=== PATIENT | female | born 1995 | race Caucasian/White ===

== ENCOUNTER 2021-03-27 15:35 | Outpatient (REF) | payer OTHER, SELFPAY ==
--- NOTE | ~2021-03-27 | MR_ITS ---
EXAMINATION: MR ANKLE WITHOUT CONTRAST, LEFT CLINICAL INFORMATION: Lateral left ankle pain. COMPARISON: None TECHNIQUE: Multisequence MR imaging of the left ankle was obtained without contrast on a high-field strength scanner. FINDINGS: BONE AND ARTICULAR CARTILAGE: Prominent marrow edema throughout the posterior tibialis as well as the superior aspect of the calcaneus adjacent to the posterior subtalar joint. Moderate joint effusion with synovitis. Findings could represent an infectious or inflammatory arthropathy. Alternatively, findings could be related to stress reactions or osseous contusions. Patchy increased T2 signal within the midfoot tarsal bones, which may be related to poor fat saturation versus mild osseous contusions or stress reactions. No talar osteochondral lesion. ACHILLES TENDON: Normal. OTHER TENDONS: Fluid and heterogeneous signal throughout the posterior tibialis tendon sheath, consistent with prominent tenosynovitis. No measurable tendon defect. LIGAMENTS: Intact. JOINT FLUID AND SOFT TISSUES: Small tibiotalar joint effusion. Moderate posterior subtalar joint effusion with synovitis as discussed above. PLANTAR FASCIA: Normal. SINUS TARSI AND TARSAL TUNNEL: Normal. MR/MR ankle LT wo con IMPRESSION: 1. Prominent marrow edema within the talus and calcaneus adjacent to the posterior subtalar joint. Moderate joint effusion with synovitis. Findings could indicate an infectious or inflammatory arthropathy. Alternatively, findings could represent prominent stress reactions versus osseous contusions. No associated fracture line. 2. Patchy abnormal T2 signal within the tarsal bones, which may be related to poor fat saturation or indicate stress reactions versus osseous contusions. 3. Prominent posterior tibialis tenosynovitis without a measurable tendon defect. 4. Small tibiotalar joint effusion.
== END 2021-03-27 15:36 | disposition home or self-care (01) ==
LOC: HO.MRI 15:35
PROVIDERS: PCP Nurse Practitioner Family; Visit Provider Nurse Practitioner Family
DX: M25.572 Pain in left ankle and joints of left foot (principal); G89.29 Other chronic pain
CPT/HCPCS: 73721

== ENCOUNTER 2021-04-29 08:18 | Outpatient (REF) | payer OTHER, SELFPAY ==
--- NOTE | ~2021-04-29 | XR_ITS ---
EXAMINATION: XR ANKLE, LEFT CLINICAL INFORMATION: Pain COMPARISON: Previous MRI March 2021 TECHNIQUE: AP, lateral, and mortise views of the left ankle. FINDINGS: Bone alignment is normal. No fracture or dislocation is seen. The ankle mortise is normal. Soft tissues are normal. XR/XR ankle LT min 3V IMPRESSION: Normal left ankle.
== END 2021-04-29 08:19 | disposition home or self-care (01) ==
LOC: HO.HOSX 08:18
PROVIDERS: Visit Provider Physician Assistant
DX: M25.572 Pain in left ankle and joints of left foot (principal); G89.29 Other chronic pain
CPT/HCPCS: 73610; 99202

== ENCOUNTER 2021-07-02 06:42 | Outpatient (REF) | payer OTHER, SELFPAY ==
[2021-07-02 12:01] LABS: Alanine Aminotransferase 30 U/L (0-31); Alkaline Phosphatase 134 U/L (39-117); Anion Gap 12 (12-20); Aspartate Amino Transferase 21 U/L (5-31); Bilirubin Total 0.4 mg/dL (0.0-1.0); Blood Urea Nitrogen 8 mg/dL (9-16); Calcium 9.4 mg/dL (8.4-10.2); Carbon Dioxide 24 mmol/L (22-29); Chloride 107 mmol/L (96-108); Cholesterol 83 mg/dL; Estimated Glomerular Filt Rate > 60; Glucose Fasting 93 mg/dL (60-99); HDL Cholesterol 35 mg/dL; LDL Cholesterol Calculated 39 mg/dl; Potassium 4.3 mmol/L (3.3-5.1); Sodium 139 mmol/L (135-145); Total Protein 8.4 g/dL (6.5-8.0); Triglycerides 48 mg/dL
[2021-07-02 12:22] LABS: TSH reflex Free T4 4.34 uIU/mL (0.32-4.0)
[2021-07-02 13:04] LABS: Free T4 (Free Thyroxine) 1.21 ng/dL (0.71-1.85)
== END 2021-07-02 06:43 | disposition home or self-care (01) ==
LOC: HO.HMGCLDS 06:42
PROVIDERS: Visit Provider Nurse Practitioner Family
DX: Z00.00 Encounter for general adult medical examination without abnormal findings (principal)
CPT/HCPCS: 36415; 80053; 80061; 84439; 84443

== ENCOUNTER 2021-07-03 | Outpatient (REF) | payer OTHER, SELFPAY ==
[2021-07-03 11:34] LABS: Appearance Urine CLEAR; Color Urine YELLOW; Glucose Urine UA NEG (NEG); Leukocyte Esterase Urine TRACE (NEG); Nitrite Urine NEG (NEG); PH 5.5 (5.0-8.0); UACC Culture Trigger YES; Urine Blood NEG (NEG); Urine Ketones NEG (NEG); Urine Protein NEG (NEG-TRACE)
[2021-07-03 11:54] LABS: RBC Urine 0-2 /HPF (0); Squamous Epithelial Cell Urine 2+ /LPF
[2021-07-03 11:55] LABS: Mucus Urine TRACE /LPF
== END 2021-07-03 00:01 | disposition home or self-care (01) ==
LOC: HO.LNP
PROVIDERS: Visit Provider Nurse Practitioner Family
DX: Z00.00 Encounter for general adult medical examination without abnormal findings (principal)
CPT/HCPCS: 81001; 87086

== ENCOUNTER 2022-05-26 13:42 | Outpatient (REF) | payer OTHER, SELFPAY ==
--- NOTE | ~2022-05-26 | XR_ITS ---
EXAMINATION: XR KNEE, RIGHT CLINICAL INFORMATION: Pain COMPARISON: None TECHNIQUE: Four views of the right knee. FINDINGS: Bone alignment is normal. No fracture or dislocation. Normal joint spaces. Moderate joint effusion. XR/XR knee RT 4V IMPRESSION: Joint effusion.
== END 2022-05-26 13:43 | disposition home or self-care (01) ==
LOC: HO.HMGCX 13:42
PROVIDERS: PCP Nurse Practitioner Family; Visit Provider Physician Assistant
DX: M25.561 Pain in right knee (principal)
CPT/HCPCS: 73564

== ENCOUNTER 2022-08-11 10:40 | Outpatient (REF) | payer OTHER, SELFPAY ==
--- NOTE | ~2022-08-11 | XR_ITS ---
EXAMINATION: XR KNEE AP STANDING CLINICAL INFORMATION: Pain COMPARISON: Previous right knee x-ray May 2022 TECHNIQUE: AP bilateral standing view of the knees and sunrise view of the right knee was obtained. FINDINGS: Right knee: There may be mild valgus angulation. Bone alignment is otherwise normal. No fracture or dislocation. Joint spaces are normal. Soft tissues are normal Standing AP view of the left knee is unremarkable. XR/XR knee standing BI IMPRESSION: Question mild right knee valgus angulation otherwise unremarkable exam.
--- NOTE | ~2022-08-11 | XR_ITS ---
EXAMINATION: XR KNEE AP STANDING CLINICAL INFORMATION: Pain COMPARISON: Previous right knee x-ray May 2022 TECHNIQUE: AP bilateral standing view of the knees and sunrise view of the right knee was obtained. FINDINGS: Right knee: There may be mild valgus angulation. Bone alignment is otherwise normal. No fracture or dislocation. Joint spaces are normal. Soft tissues are normal Standing AP view of the left knee is unremarkable. XR/XR knee RT 1V IMPRESSION: Question mild right knee valgus angulation otherwise unremarkable exam.
== END 2022-08-11 10:41 | disposition home or self-care (01) ==
LOC: HO.HOSX 10:40
PROVIDERS: Visit Provider Physician Assistant
DX: M25.461 Effusion, right knee (principal)
CPT/HCPCS: 73560; 73565; 99212

== ENCOUNTER 2022-09-19 08:04 | Outpatient (REF) | payer OTHER, SELFPAY ==
--- NOTE | ~2022-09-19 | MR_ITS ---
EXAMINATION: MR KNEE WITHOUT CONTRAST, RIGHT CLINICAL INFORMATION: Effusion. COMPARISON: None available. TECHNIQUE: MRI of the knee without contrast was performed using routine sequences on a high-field scanner. FINDINGS: MENISCI: Medial Meniscus: Complex tear of the posterior horn. There is undersurface and free edge tearing. There are areas of superior surface tearing as well. Complex tear of the body with predominant undersurface and free edge tearing. Lateral Meniscus: Tear of the inner one-third of the body. Tear of the free edge and undersurface of the lateral aspect of the posterior horn. LIGAMENTS: Cruciate: Intact Collateral: Intact EXTENSOR MECHANISM: Intact ARTICULAR CARTILAGE/BONE: Patellofemoral Compartment: Mild lateral patellar subluxation. No significant cartilage loss. Medial Compartment: Patchy edema in the posterior medial tibial plateau, mild cartilage thinning. Medial femoral condyle underlying the tibial spines. Lateral Compartment: Moderate edema in the lateral aspect lateral femoral condyle. Patchy edema in the lateral tibial plateau. Mild cartilage thinning in the lateral aspect of the compartment. JOINT FLUID AND BURSAE: Moderate effusion. Low signal foci and effusion, which could represent synovitis, debris/loose bodies. MR/MR knee RT wo con IMPRESSION: 1. Complex tear of the medial meniscal posterior horn and body. 2. Tear of the lateral meniscal body and posterior horn, as above. 3. Mild medial and lateral compartment arthritis. 4. Edema in the lateral aspect lateral femoral condyle. This could represent bone bruise. 5. Proximal tibial edema, differential considerations include bone bruise, sequela of degeneration.
== END 2022-09-19 08:05 | disposition home or self-care (01) ==
LOC: HO.MRI 08:04
PROVIDERS: PCP Nurse Practitioner Family; Visit Provider Physician Assistant
DX: M25.461 Effusion, right knee (principal)
CPT/HCPCS: 73721

== ENCOUNTER → 2022-09-25 09:17 | Outpatient (BNVA) | payer OTHER, SELFPAY | PROVIDERS: PCP Nurse Practitioner Family; Visit Provider Physician Assistant | DX: M25.461 Effusion, right knee (principal); S83.231A Complex tear of medial meniscus, current injury, right knee, initial encounter; X58.XXXA Exposure to other specified factors, initial encounter; Y93.9 Activity, unspecified; Y92.9 Unspecified place or not applicable; Y99.8 Other external cause status | CPT/HCPCS: 20610; 99212; J1040 ==

== ENCOUNTER 2022-10-14 09:53 | Outpatient (AMB) | payer OTHER, SELFPAY ==
--- NOTE | 2022-10-14 10:27 | A.OFFPC_ITS ---
Vital Signs 10/14/22 10:28 Height 5 ft 5 in Weight 138 lb 4 oz BMI 23.0 BP 110/76 Blood Pressure Location Rt brachial Position Sitting Pulse 97 Pulse Source Pulse Oximeter Pulse Oximetry (%) 99 Oxygen Delivery Method Room Air Intake Visit Reasons: 3m follow up on TSH Allergies No Known Allergies Allergy (Verified 10/14/22 10:30) Medication List - Last Reconciled 10/14/22 by Son Quintero, [employer] OPERATOR-BC diphenhydramine-acetaminophen 25-500 mg (Tylenol PM Extra Strength) 2 tabs PO BEDTIME PRN naproxen sodium (Aleve) 220 mg PO BID PRN Tobacco use date assessed: 10/14/22 Dental Screening Dental Screen Date: 10/14/22 Did you have a dental visit in the last 12 months?: Yes Did you have a dental problem in the last 6 months where you did not have access to dental care?: No Was dental information given to patient?: Patient has dentist HPI 3m follow up on TSH HPI Details elevated TSH, will repeat. Will also check alk phos. Pt denies any fatigue, hair loss, constipation. 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 Rory Sabillon, Zaida Doherty, Edwin Massey and colleagues, with an educational nadiya from [employer]. Review of Systems Const Reports as per HPI Physical exam (Primary Care) Vital Signs: Last Vital Signs Pulse 97 10/14/22 10:28 BP 110/76 10/14/22 10:28 Pulse Ox 99 10/14/22 10:28 Oxygen Delivery Method Room Air 10/14/22 10:28 BMI result Body Mass Index 23.0 Tobacco/Smoking Status: Tobacco use Status Tobacco use date assessed 10/14/22 10/14/22 10:33 Patient Tobacco Use Status Never used Tobacco 10/14/22 10:33 e-Cigarette/Vaping Use Never Used 10/14/22 10:33 Thrive Assessment: Date of Thrive Assessment Date Thrive assessed 07/08/22 10/14/22 10:33 Const General: cooperative Orientation/consciousness: patient oriented x3 Resp Effort & Inspection: normal respiratory effort Auscultation: clear to auscultation bilaterally Cardio Rate: regular rate Rhythm: regular rhythm Heart sounds: S1 normal heart sound present and S2 normal heart sound present Neuro General: patient oriented x3 Psych Appearance: grossly normal Mental Status: mental status grossly normal Speech and movement: Normal speech and movement present Affect: normal affect Attitude: cooperative Thought process: Normal thought process present Thought content: Normal thought content present Insight: Good insight present (Psych) Judgement: Good judgement present (Psych) Assessment and Plan Assessment & Plan (1) Elevated TSH: Code(s): R79.89 - Other specified abnormal findings of blood chemistry Plan: Labs ordered (2) Elevated alkaline phosphatase level: Code(s): R74.8 - Abnormal levels of other serum enzymes Plan The patient agreed to the use of a medical office coordinator for this encounter. Scribed for SHRUTHI Bui- by Michaela Lynne medical office coordinator, on 10/14/2022 at 10:35 EST. Orders: Orders Lipid Panel Today R7.89 - Other specified abnormal findings of blood chemistry TSH reflex Free T4 Today R79.89 - Other specified abnormal findings of blood chemistry Complete Blood Count Auto Diff Today R7.89 - Other specified abnormal findings of blood chemistry UA CC w/rflx Micro + Cult Today R7.89 - Other specified abnormal findings of blood chemistry Thyroid Peroxidase Antibodies Today R7.89 - Other specified abnormal findings of blood chemistry Comprehensive Met. Panel Today R74.8 - Abnormal levels of other serum enzymes, R7. - Other specified abnormal findings of blood chemistry Coding Level of Care Code Est Pt Level 3 (89232) Diagnoses Elevated TSH R7. Elevated alkaline phosphatase level R74.8
[2022-10-14 10:28] VITALS: BP 110/76; PULSE 97; O2SAT 99; BMI 23.0
== END 2022-10-14 11:00 | disposition home or self-care (01) ==
PROVIDERS: PCP Nurse Practitioner Family; Visit Provider Nurse Practitioner Family
DX: R79.89 Other specified abnormal findings of blood chemistry (principal); R74.8 Abnormal levels of other serum enzymes
CPT/HCPCS: 99213

== ENCOUNTER 2022-11-03 11:00 | Outpatient (RCR) | payer OTHER, SELFPAY ==
--- NOTE | 2022-10-03 14:50 | MHC.PT.EP ---
[facility] [place] Office [place] Office [place] Office [address] Tia Soares [address] [phone] F: [phone] F: [phone] F: [phone] F: [phone] Physical Therapy Plan of Care Date of Evaluation: Date of Surgery: N/A Diagnosis: S83.206A unspecified tear of unspecified meniscus, current injury, right knee, initial encounter Assessment: pt is a 27 y/o female presenting to physical therapy w/ referring diagnosis of S83.206A unspecified tear of unspecified meniscus, current injury, right knee, initial encounter. Impairments include pain, decreased range of motion, decreased strength, impaired functional mobility, impaired postural awareness, and altered ambulation mechanics. pt is a good candidate for skilled PT due to age, potential remediation of impairments, typical disease/condition progression and prognosis, comorbidities, and motivation. pt would benefit from skilled PT intervention to provide a tailored strengthening and stretching exercise program, functional training, gait training, postural re-training, neuromuscular re-education, modalities as needed for pain, equipment safety demonstration. Frequency and Duration: The patient will be seen 2x/wk for 4 wks Short Term Goals: pt will be I w/ HEP to promote self-management of condition. pt will improve R knee extension strength to at least 5/5 to promote ease in prolonged ambulation. Group Home Goals: pt will demo 0 degrees active knee extension to remediate gait impairments on even ground. 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 Treatment Plan: Modalities to reduce pain, spasms and effusion. Manual therapy to restore motion and function. Therapeutic exercise to improve strength and flexibility. Neuromuscular re-education for posture and balance. Therapeutic activities to return to functional activities of daily living. Electronically signed by: Missy Gonzáles PT, DPT Please sign and return to therapist. Thank you for your referral.
--- NOTE | 2022-11-03 11:48 | MHC.PT.DC ---
[facility] [place] Office [place] Office [place] Office [address] Tia Soares [address] [phone] F: [phone] F: [phone] F: [phone] F: [phone] Physical Therapy Discharge Report Diagnosis: S83.206A unspecified tear of unspecified meniscus, current injury, right knee, initial encounter Date of Surgery: N/A Date of Evaluation: 10/03/22 Date of Discharge: 11/03/22 Treatments to Date: 9 Cancellations to Date: 0 No Shows to Date: 0 Discharge Status: Improved Function Independent with HEP Discharge Summary: The patient has been consistently reporting little to no knee pain over the past several visits. She is independent with her home exercise program. She was given the opportunity to ask questions and they were answered to the best of my ability. She is discharged to her home exercise program at this time. Electronically signed by: Missy Gonzáles PT, DPT Please sign and return to therapist. Thank you for your referral.
== END 2022-11-03 11:48 | disposition home or self-care (01) ==
LOC: HO.PT 11:00
PROVIDERS: PCP Nurse Practitioner Family; Visit Provider Physician Assistant
DX: S83.206D Unspecified tear of unspecified meniscus, current injury, right knee, subsequent encounter (principal)
CPT/HCPCS: 97110; 97162; 97530

== ENCOUNTER 2023-04-22 08:29 | Outpatient (AMB) | payer OTHER, SELFPAY ==
--- NOTE | 2023-04-22 09:01 | A.OFFPC_ITS ---
Vital Signs 04/22/23 09:05 04/22/23 09:34 Height 5 ft 5 in Weight 147 lb BMI 24.5 BP 108/68 Blood Pressure Location Rt brachial Position Sitting Pulse 108 H 95 Pulse Source Pulse Oximeter Pulse Oximetry (%) 97 Oxygen Delivery Method Room Air Intake Visit Reasons: PE Intake Note: Patient here for physical exam. no new issues or concerns. Allergies No Known Allergies Allergy (Verified 04/22/23 09:06) Tobacco use date assessed: 04/22/23 Dental Screening Dental Screen Date: 04/22/23 Did you have a dental visit in the last 12 months?: Yes Did you have a dental problem in the last 6 months where you did not have access to dental care?: No Was dental information given to patient?: Patient has dentist HPI PE HPI Details Pt is here for a PE. Will order labs. Does not have a cfo controller, will refer. 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 1. Little interest or pleasure in doing things: not at all 2. Feeling down, depressed, or hopeless: not at all 3. Trouble falling or staying asleep, or sleeping too much: not at all 4. Feeling tired or having little energy: not at all 5. Poor appetite or overeating: not at all 6. Feeling bad about yourself - or that you are a failure or have let yourself or your family down: not at all 7. Trouble concentrating on things, such as reading the newspaper or watching television: not at all 8. Moving or speaking so slowly that other people could have noticed. Or the opposite - being so fidgety or restless that you have been moving around a lot more than usual: not at all 9. Thoughts that you would be better off or of hurting yourself in some way: not at all Total score: 0 Depression Screening Interpretation: Negative Depression Screening Done: Yes 06695 - PHQ-9 Billing: Yes Source: Developed by Drs. Rory Sabillon, Zaida Doherty, Edwin Massey and colleagues, with an educational nadiya from [employer]. Thrive Questionnaire Date Thrive assessed: 04/22/23 I am a: Patient What is your living situation today?: I have a steady place to live Within the past 12 months, did the food you bought not last and you didn't have the money to get more?: Never true Within the past 12 months, did you worry whether your food would run out before you got money to buy more?: Never true Do you have trouble paying for medicines?: No Do you have trouble getting transportation to medical appointments?: No Do you have trouble paying your heating and electricity bill?: No Do you have trouble taking care of your child, family member or friend?: No Do you have trouble with day-to-day activities such as bathing, preparing meals, shopping, managing finances, etc.?: No Are you currently unemployed and looking for a job?: No Are you interested in more education?: No Currently or been in a relationship where the following occur: no concerns reported AUDIT C Alcohol Use Questionnaire (AUDIT-C) 1. How often do you have a drink containing alcohol?: Never 3. How often do you have six or more drinks on one occasion?: Never Total Score: 0 DAVY-7 AMB Questionnaire DAVY-7 Date DAVY - 7 assessed: 04/22/23 Feeling nervous, anxious, or on edge: 0 = Not at all Not being able to stop or control worryin = Not at all Worrying too much about different things: 0 = Not at all Trouble relaxin = Not at all Being so restless that it is hard to sit still: 0 = Not at all Becoming easily annoyed or irritable: 0 = Not at all Feeling afraid as if something awful might happen: 0 = Not at all Total DAVY-7 score (0-4 normal; 5-9 mild; 10-14 moderate; 15-21 severe): 0 Source: Developed by Zaida Norris Kurt Kroenke and colleagues, with an educational nadiya from [employer]. DAVY-7 Assessment Billing DAVY-7 Assessment Tool: DAVY-7 Assessment 16508 Review of Systems Const Denies chills and Denies fever(s) Eyes Denies blurry vision ENT Denies vertigo, Denies dizziness and Denies sore throat Card Denies chest pain at rest, Denies chest pain with activity, Denies diaphoresis, Denies dyspnea and Denies dyspnea on exertion Resp Denies cough, Denies dyspnea, Denies dyspnea on exertion and Denies wheezing GI Denies abdominal pain, Denies melena, Denies hematochezia, Denies constipation, Denies diarrhea and Denies loose stools Denies hematuria Musc Denies numbness and Denies tingling Skin/Breast Denies lesions Neuro Denies vertigo, Denies dizziness, Denies numbness and Denies tingling Psych Denies anxiety, Denies depression, Denies homicidal ideation, Denies suicidal ideation and Denies other (substance abuse) Aller/Immun Denies wheezing Physical exam (Primary Care) Vital Signs: Last Vital Signs Pulse 108 H 04/22/23 09:05 BP 108/68 04/22/23 09:05 Pulse Ox 97 04/22/23 09:05 Oxygen Delivery Method Room Air 04/22/23 09:05 BMI result Body Mass Index 24.5 Tobacco/Smoking Status: Tobacco use Status Tobacco use date assessed 04/22/23 04/22/23 09:08 Patient Tobacco Use Status Never used Tobacco 04/22/23 09:03 e-Cigarette/Vaping Use Never Used 04/22/23 09:03 Depression Screening Interpretation: Negative Thrive Assessment: Date of Thrive Assessment Date Thrive assessed 07/08/22 04/22/23 09:03 Currently or been in a relationship where the following occur: no concerns reported Const General: cooperative Nutritional Appearance: well nourished Orientation/consciousness: patient oriented x3 HENMT Head: Yes normal to inspection, Yes normocephalic and Yes atraumatic Ears: TM's normal bilaterally Eyes General: appearance normal, both eyes and all related structures Alignment and Position: alignment normal and position normal Neck Neck: Yes normal visual inspection and Yes no lymphadenopathy Thyroid: Thyroid normal Resp Effort & Inspection: normal respiratory effort Auscultation: clear to auscultation bilaterally Cardio Rate: regular rate Rhythm: regular rhythm Heart sounds: S1 normal heart sound present, S2 normal heart sound present and no murmurs GI Palpation (GI): Soft to palpation and nontender Auscultation: normal bowel sounds Skin Rashes: no rashes Neuro General: patient oriented x3, moves all extremities, no focal motor deficits and deep tendon reflexes 2+ bilaterally Romberg Test: Negative Psych Appearance: grossly normal Mental Status: mental status grossly normal Speech and movement: Normal speech and movement present Affect: normal affect Attitude: cooperative Thought process: Normal thought process present Thought content: Normal thought content present Insight: Good insight present (Psych) Judgement: Good judgement present (Psych) Assessment and Plan Assessment & Plan (1) Screening for cervical cancer: Code(s): Z12.4 - Encounter for screening for malignant neoplasm of cervix Plan: Referred to cfo controller (2) Physical exam: Code(s): Z00.00 - Encounter for general adult medical examination without abnormal findings Plan: encouraged pt to get labs drawn in the near future Plan The patient agreed to the use of a director global medical affairs for this encounter. Scribed for SHRUTHI Bui-BC by Michaela Lynne director global medical affairs, on 04/22/2023 at 09:15 EST. Orders: Referrals STUDENT ACTIVITIES DIRECTOR Referral Z12.4 - Encounter for screening for malignant neoplasm of cervix Coding Level of Care Code Est Pt Prev Care 18-39y(98806) Diagnoses Screening for cervical cancer Z12.4 Physical exam Z00.00 Additional Codes DAVY-7 Assessment Billing - DAVY-7 Assessment Tool: DAVY-7 Assessment [id number] ([id number])
[2023-04-22 09:05] VITALS: BP 108/68; PULSE 108; O2SAT 97; BMI 24.5
[2023-04-22 09:34] VITALS: PULSE 95
== END 2023-04-22 09:25 | disposition home or self-care (01) ==
PROVIDERS: PCP Nurse Practitioner Family; Visit Provider Nurse Practitioner Family
DX: Z12.4 Encounter for screening for malignant neoplasm of cervix (principal); Z00.00 Encounter for general adult medical examination without abnormal findings
CPT/HCPCS: 99395

== ENCOUNTER 2023-06-05 08:40 | Outpatient (AMB) | payer OTHER, SELFPAY ==
--- NOTE | 2023-06-05 08:42 | A.OFFVIS_ITS ---
Intake Intake Visit Reasons: Newprob-Right ankle/foot pain swelling Intake Note: Missy is a 27 year old female who presents today for a evaluation for right ankle pain/swelling. No hx of injury. Patient reports being seen at the walk in center on 05/26/22. She states her pain has been off and on for many months. Pain is worse when applying a lot of pressure on the right side of her foot/ankle. Hx of using a topical cream with mild relief. Allergies No Known Allergies Allergy (Verified 06/05/23 08:49) HPI Newprob-Right ankle/foot pain swelling HPI Details 28-year-old female who presents in the [facility] today for an evaluation of right ankle/foot pain with edema. I last saw the patient in the office on 09/25/2022 with a complaint of right knee pain. During this encounter the patient reported pain in the right ankle that radiated up to the right knee. She received a cortisone injection in the right knee and she was referred to physical therapy. While in the office today the patient does not recall any known injury. She confirms being seen at the [facility] for right knee and ankle pain on 0 05/26/2022 and states her pain has been intermittent for several months. She reports an increase in pain when applying pressure on the right side of the foot/ankle. Patient has a history of topical cream use with mild pain relief. 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 Current occupational exposures/hazards: No Cognitive needs: No Hearing needs: No Vision needs: No Review of Systems Const All systems reviewed & are unremarkable except as noted in HPI and below Physical Exam Const General: cooperative, healthy appearing and no acute distress Resp Effort & Inspection: normal respiratory effort and able to speak in complete sentences Cardio Rate: regular rate Peripheral pulses: Peripheral pulses 2+ throughout GI Palpation (GI): Soft to palpation Skin Lesions: no lesions Rashes: no rashes Extrem Other: right foot and ankle normal to inspection no ecchymosis, erythema or edema. able to dorsiflex and plantarflex with no limitations. Difficulty with supination. No difficulty o limitation with pronation. Tenderness to palpation along the EHL and pain with resisted big toe extension. Sensation intact. Pedal pulse intact. Assessment & Plan Assessment & Plan (1) Extensor tendonitis of foot: Code(s): M77.8 - Other enthesopathies, not elsewhere classified Plan Ms. Degroot is a 28-year-old female who presents in the office today for an evaluation of right ankle/foot pain with edema. I last saw the patient in the office on 09/25/2022 with a complaint of right knee pain. During this encounter the patient reported pain in the right ankle that radiated up to the right knee. She received a cortisone injection in the right knee and she was referred to physical therapy. While in the office today the patient does not recall any known injury. She confirms being seen at the Walk-In clinic for right knee and ankle pain on 05/26/2022 and states her pain has been intermittent for several months. She reports an increase in pain when applying pressure on the right side of the foot/ankle. Patient has a history of topical cream use with mild pain relief. The patient will be referred to physical therapy to work on modalities for EHL tendonitis. Follow up will be PRN, or sooner if needed. X-rays of the right foot/ankle which were obtained while in the office today and were reviewed by me, Dixie Hoang PA-C, revealed no acute fracture or dislocaiton. Orders: Orders XR foot RT min 3V Today M79.673 - Pain in unspecified foot XR ankle RT min 3V Today M25.579 - Pain in unspecified ankle and joints of unspecified foot PT Evaluation and Treatment Today M77.8 - Other enthesopathies, not elsewhere classified Patient Instructions: Scribed by Charlette Prather medical laboratory technical officer, for Dixie Hoang PA-C on 06/05/2023 at 8:59 am, EST. Coding Level of Care Code Est Pt Level 4 (93208) Diagnoses Extensor tendonitis of foot M77.8
== END 2023-06-05 09:07 | disposition home or self-care (01) ==
PROVIDERS: PCP Nurse Practitioner Family; Visit Provider Physician Assistant
DX: M77.8 Other enthesopathies, not elsewhere classified (principal)
CPT/HCPCS: 99213

== ENCOUNTER 2023-06-05 08:40 | Outpatient (REF) | payer OTHER, SELFPAY ==
--- NOTE | ~2023-06-05 | XR_ITS ---
EXAMINATION: XR FOOT, RIGHT CLINICAL INFORMATION: Pain in unspecified foot COMPARISON: Same day right ankle TECHNIQUE: AP, lateral, and oblique views of the right foot. FINDINGS: The bones are intact.. No fracture. There is mild soft tissue overlap of the second and great toe and the fourth and fifth toe. There is slight lateral subluxation of the proximal phalanx of the great toe with respect to the head of the first metatarsal. Joint spaces are maintained. XR/XR foot RT min 3V IMPRESSION: Slight lateral subluxation of the proximal phalanx of the great toe with respect to the head of the first metatarsal. No acute bony abnormality.
--- NOTE | ~2023-06-05 | XR_ITS ---
EXAMINATION: XR ANKLE, RIGHT CLINICAL INFORMATION: Pain in unspecified ankle and joints of unspecified foot COMPARISON: Same-day right foot TECHNIQUE: AP and mortise views of the right ankle. FINDINGS: No fracture. Alignment is anatomic. No erosions. Joint spaces are maintained. Soft tissues are normal. XR/XR ankle RT min 3V IMPRESSION: No bony abnormality.
== END 2023-06-05 08:41 | disposition home or self-care (01) ==
LOC: HO.HOSX 08:40
PROVIDERS: PCP Nurse Practitioner Family; Visit Provider Physician Assistant
DX: M77.8 Other enthesopathies, not elsewhere classified (principal); M25.571 Pain in right ankle and joints of right foot
CPT/HCPCS: 73610; 73630; 99212

== ENCOUNTER 2023-07-21 13:05 | Outpatient (REF) | payer OTHER, SELFPAY ==
[2023-07-22 05:10] LABS: CT PCR NOT DETECTED (Not Detect.); NG PCR NOT DETECTED (Not Detect.)
[2023-07-22 13:56] LABS: BV Int Neg Control Negative (Negative); BV Int Pos Control Positive (Positive)
== END 2023-07-21 13:06 | disposition home or self-care (01) ==
LOC: HO.LAB 13:05
PROVIDERS: PCP Nurse Practitioner Family; Visit Provider Advanced Practice Midwife
DX: Z01.419 Encounter for gynecological examination (general) (routine) without abnormal findings (principal); Z20.2 Contact with and (suspected) exposure to infections with a predominantly sexual mode of transmission; Z11.3 Encounter for screening for infections with a predominantly sexual mode of transmission
CPT/HCPCS: 0353U; 87480; 87510; 87660; 88142; 99385

== ENCOUNTER 2023-07-21 13:05 | Outpatient (AMB) | payer OTHER, SELFPAY ==
[2023-07-21 13:17] VITALS: BP 110/62; BMI 24.3
--- NOTE | 2023-07-21 13:17 | A.OFFVIS_ITS ---
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 She thinks she has had 1 once before but does not remember where when perhaps it was in [place]. She says she has not sexually active and she does not need anything for control she says her periods very regular when they come about once a month her last period was in the middle of June. She says she lives with her parents and she does not work she walks around for exercise she thinks she eats fairly healthy. She has no particular problems with vaginal discharge or anything like that. 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 Current occupational exposures/hazards: No Cognitive needs: No Hearing needs: No Vision needs: No Female Reproductive History Menstrual Age of Menarche: 13 Duration of menses: 3-5 days Date of last menstrual period: 06/20/23 control method: none History of abnormal pap smear: No (unknown( patient don't remember)) Physical Exam Vital Signs: Last Vital Signs BP 110/62 07/21/23 13:17 BMI result Body Mass Index 24.3 Const General: healthy appearing, comfortable, no acute distress, well developed and alert Nutritional Appearance: average body habitus Orientation/consciousness: patient oriented x3 Limitations: no limitations HEENT Head: Yes normocephalic Neck Neck: Yes normal visual inspection Chest Chest palpation & inspection: normal inspection of the chest Breast/axilla inspection: normal inspection of the breasts and normal inspection of the axillae Breast/axilla palpation: normal palpation of the breasts and normal palpation of the axillae Resp Effort & Inspection: normal respiratory effort GI Inspection: Yes normal to inspection, No Abdominal wall edema and No distended Palpation (GI): Soft to palpation and nontender Other: Normal external exam vagina is pink and moist cervix is extremely deep and posterior in patient's pelvis nulliparous extremely difficult to see secondary to deep placement Pap smear taken but I suspect it may be inadequate because only the anterior portion of the cervix could be adequately sampled though multiple efforts were made to have sampling touch the entire cervix. Abundant clear slippery mucus that could possibly be consistent with midcycle mucus was noted this was inconsistent with patient's history which was scant. Uterus is small midposition mobile nontender very good muscle tone. General: Yes bladder normal to palpation External Female Exam: normal external appearance and normal appearance of the urethra Speculum Exam - Vagina: normal appearance of the vagina, normal palpation and normal vaginal discharge Speculum Exam - Cervix: normal appearance of the cervix, normal palpation and nontender Bimanual exam- vagina & uterus: normal bimanual exam, normal palpation, uterine size normal, bladder normal to palpation, consistency normal, normal palpation, uterine mobility normal, uterine shape normal, No Cervical tenderness present, non-tender and no cervical motion tenderness Bimanual Exam- Adnexa, other: normal adnexae, no masses, normal and No adnexal tenderness Neuro General: patient oriented x3 Assessment & Plan Assessment & Plan (1) Screening for cervical cancer: Comment: Nulliparous cervix extremely posterior patient's pelvis difficult to obtain good visualization Pap smear taken but suspect it may not be adequate. Additionally abundant clear mucus consistent with midcycle though this was inconsistent with the patient history. Code(s): Z12.4 - Encounter for screening for malignant neoplasm of cervix (2) Well woman exam with routine gynecological exam: Code(s): Z01.419 - Encounter for gynecological examination (general) (routine) without abnormal findings Plan -----Discussed in this visit the following: healthy balanced diet, regular and consistent exercise, getting recommended health screens, doing the best she can for her particular health concerns, kegel exercises, pap smear screening and followup recommendations, mammography screening and SBE, normal changes in cycles in her life stage--- . Patient did find placement of the speculum very uncomfortable multiple attempts to get good visualization of the cervix were done however limited visualization was obtained though cervix and mucosa appeared extremely healthy I suspect the Pap smear may in fact be inadequate a additionally there was abundant clear mucus consistent with midcycle though the patient's history was not consistent with this (she said her last menstrual period was the middle of June it is now the middle of July). I explained to the patient that I was sorry that she found it uncomfortable and best attempts were made to get a good Pap but it if it was not able to be obtained there is a chance it might need to be repeated. Coding Level of Care Code New Pt Prev Care 18-39yr(04950 Diagnoses Screening for cervical cancer Z12.4 Well woman exam with routine gynecological exam Z01.419
== END 2023-07-21 14:00 | disposition home or self-care (01) ==
PROVIDERS: PCP Nurse Practitioner Family; Visit Provider Advanced Practice Midwife
DX: Z12.4 Encounter for screening for malignant neoplasm of cervix (principal); Z01.419 Encounter for gynecological examination (general) (routine) without abnormal findings
CPT/HCPCS: 99385

== ENCOUNTER 2023-08-12 08:00 | Outpatient (RCR) | payer OTHER, SELFPAY ==
--- NOTE | 2023-06-29 09:01 | MHC.PT.EP ---
[facility] [place] Office [place] Office [place] Office [address] Soares [address] [phone] F: [phone] F: [phone] F: [phone] F: [phone] Physical Therapy Plan of Care Date of Evaluation: 06/29/23 Date of Surgery: none Diagnosis: extensor tendonitis of right foot Assessment: Patient is a 28 year old R handed female who presents with s/s consistent with ankle pain, EHL tendonitis. She does not work and is fairly sedentary for her age. Patient past medical history includes autism. Current impairments include pain, posture, gait mechanics, ROM, strength, activity tolerance and functional mobility. Functional limitations include decreased ability to stand, walk, negotiate stairs, be out in community, exercise and be active. Patient is motivated with good rehab potential. Skilled PT will address impairments and functional limitations in order to achieve goals. Frequency and Duration: The patient will be seen 2x/week for 5 weeks Short Term Goals: I with HEP- 2 weeks Footwear modifcation - 3 weeks TTP absent - 3 weeks Roller Man Goals: Able to walk/stand unlimited 2/10 max pain - 5 weeks LEFS 72/80 - 5 weeks Strength 4+/5 grossly - 5 weeks Treatment Plan: Modalities to reduce pain, spasms and effusion. Manual therapy to restore motion and function. Therapeutic exercise to improve strength and flexibility. Neuromuscular re-education for posture and balance. Therapeutic activities to return to functional activities of daily living. Electronically signed by: Kris Jiang, PT Please sign and return to therapist. Thank you for your referral.
--- NOTE | 2024-01-07 07:14 | MHC.PT.DC ---
[facility] [place] Office [place] Office [place] Office [address] Tia Soares [address] [phone] F: [phone] F: [phone] F: [phone] F: [phone] Physical Therapy Discharge Report Diagnosis: extensor tendonitis of right foot Date of Surgery: none Date of Evaluation: 06/29/23 Date of Discharge: 09/09/23 Treatments to Date: 13 Cancellations to Date: No Shows to Date: Discharge Status: Independent with HEP Discharge Summary: 08/12/23: I with HEP. LEFS 68/80. Able to walk/stand 2/10 max pain for a few weeks now. She has updated bands and HEP and is appropriate to d/c to HEP at this time. She will call back if exacerbation occurs. 08/10/23: pt on pace to d/c to HEP NV. strength 4+/5, unlimited ability to walk and stand. I with HEP. footwear modified. TTP min. 08/05/23: pt with less pain overall. improved balance and strength. we will continue 1 more week then d/c to HEP. 08/03/23: pt with steady progression and reduced s/s over the course of PT. we have been able to increased weight bearing/ CKC ex. we will begin process to transition to d/c to HEP in 1-2 weeks depending on best indications. 07/29/23: pt with min s/s. progressed strength. no adverse reactions. continue to progress as tolerated. 07/27/23: pt progressing well with skilled PT. some pain over the weekend so we held progression but will resume NV. 07/24/23: pt continues to progress well with skilled PT. responding well to current program. less s/s overall and only in ant ankle. 07/22/23: pt with min s/s. improving strength. full AROM. continue to progress as tolerated. responding better to balance intervention. 07/15/23: pt has been feeling better overall. however, today we were unable to progress due to pt feeling progressively more sick over the course of treatment. we were able to complete her full program but without progression today. we will resume progression NV. 07/13/23: pt progressing well with skilled PT. no adverse reactions from program. progressing with less s/s, reduced TTP, improved strength. 07/08/23: pt progressing well with skilled PT. no adverse reactions. continue to progress as tolerated. s/s reducing and strength/balance improving with less discomfort. 07/06/23: improving symptomatically. no adverse reactions from above. continue to progress as tolerated. 07/01/23: good response to tape. trialed US today. assess response and progress LE strength as tolerated. weak intrinsics. Patient is a 28 year old R handed female who presents with s/s consistent with ankle pain, EHL tendonitis. She does not work and is fairly sedentary for her age. Patient past medical history includes autism. Current impairments include pain, posture, gait mechanics, ROM, strength, activity tolerance and functional mobility. Functional limitations include decreased ability to stand, walk, negotiate stairs, be out in community, exercise and be active. Patient is motivated with good rehab potential. Skilled PT will address impairments and functional limitations in order to achieve goals. Electronically signed by: Kris Jiang, PT Please sign and return to therapist. Thank you for your referral.
== END 2024-01-07 07:15 | disposition home or self-care (01) ==
LOC: HO.PTCHIC 08:00
PROVIDERS: PCP Nurse Practitioner Family; Visit Provider Physician Assistant
DX: M77.8 Other enthesopathies, not elsewhere classified (principal)
CPT/HCPCS: 97035; 97110; 97112; 97161

== ENCOUNTER 2023-09-07 12:53 | Outpatient (AMB) | payer OTHER, SELFPAY ==
--- NOTE | 2023-09-07 13:04 | MHC.OFFVIS ---
Intake Visit Reasons: ov- follow up right ankle Intake Note: Missy is a 27 year old female who presents today for a follow up of her right ankle pain/swelling. No hx of injury. Patient reports being seen at the walk in center on 05/26/22. She states her pain has been off and on for many months. Pain is worse when applying a lot of pressure on the right side of her foot/ankle. Hx of using a topical cream with mild relief. She expresses that her pain has gotten a little better when she is doing her at home exercises. Allergies No Known Allergies Allergy (Verified 09/07/23 13:16) HPI HPI ov- follow up right ankle: Details: 28-year-old female who presents in the office today for a follow up of right knee. I last saw the patient in the office on 09/25/2022 when she received a cortisone injection in the right knee. While in the office today the patient reports having continued right knee pain and edema. She denies any new injury or trauma. Patient has a significant medical history of autism. 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 Current occupational exposures/hazards: No Cognitive needs: No Hearing needs: No Vision needs: No Female Reproductive History Menstrual Age of Menarche: 13 Review of Systems Const All systems reviewed & are unremarkable except as noted in HPI and below Physical Exam Const General: cooperative, healthy appearing and no acute distress Resp Effort & Inspection: normal respiratory effort and able to speak in complete sentences Cardio Rate: regular rate Peripheral pulses: Peripheral pulses 2+ throughout GI Palpation (GI): Soft to palpation Skin Lesions: no lesions Rashes: no rashes Extrem Other: Right knee: Moderate effusion. Tenderness to palpation along the medial joint line. Full ROM. NVI. Assessment & Plan Assessment & Plan (1) Effusion of right knee: Code(s): M25.461 - Effusion, right knee Category: Medical Plan Ms. Degroot is a 28-year-old female who presents in the office today for a follow up of right knee. I last saw the patient in the office on 09/25/2022 when she received a cortisone injection in the right knee. While in the office today the patient reports having continued right knee pain and edema. She denies any new injury or trauma. Patient has a significant medical history of autism. I discuss the role of cortisone injections, which was declined. I offered to aspirate the right knee, which the patient declined. I offered arthroscopic surgery for medial and lateral meniscectomy partial meniscectomy patient has declined at this time. The patient was offered a genumed knee brace, off the shelf, which she is willing to trial. Follow-up will be PRN, or sooner if needed. MRI of the right knee, obtained on 09/19/2022, revealed: 1. Complex tear of the medial meniscal posterior horn and body. 2. Tear of the lateral meniscal body and posterior horn, as above. 3. Mild medial and lateral compartment arthritis. 4. Edema in the lateral aspect lateral femoral condyle. This could represent bone bruise. 5. Proximal tibial edema, differential considerations include bone bruise, sequela of degeneration. Patient Instructions: Scribed by Charlette Prather medical reimbursement manager, for Dixie Hoang PA-C on 09/07/2023 at 12:56 pm, EST. Coding Level of Care Code Est Pt Level 3 (56891) Diagnoses Effusion of right knee M25.461
== END 2023-09-07 13:44 | disposition home or self-care (01) ==
PROVIDERS: PCP Nurse Practitioner Family; Visit Provider Physician Assistant
DX: M25.461 Effusion, right knee (principal); S83.231A Complex tear of medial meniscus, current injury, right knee, initial encounter; S83.281A Other tear of lateral meniscus, current injury, right knee, initial encounter
CPT/HCPCS: 99213

== ENCOUNTER → 2023-09-07 12:53 | Outpatient (BNVA) | payer OTHER, SELFPAY | PROVIDERS: PCP Nurse Practitioner Family; Visit Provider Physician Assistant | DX: M25.471 Effusion, right ankle (principal); S83.231A Complex tear of medial meniscus, current injury, right knee, initial encounter; S83.281A Other tear of lateral meniscus, current injury, right knee, initial encounter; X58.XXXA Exposure to other specified factors, initial encounter; Y93.9 Activity, unspecified; Y92.9 Unspecified place or not applicable; Y99.9 Unspecified external cause status | CPT/HCPCS: 99212 ==

== ENCOUNTER 2023-11-17 09:00 | Outpatient (AMB) | payer OTHER, SELFPAY ==
--- NOTE | 2023-11-17 09:05 | MHC.OFFVIS ---
Intake Visit Reasons: OV- RT knee pain Intake Note: Missy is a 28 year old female who presents today for a follow up of her right knee. Patient reports her knee is getting swollen and it hasn't gotten better. She mentions the knee brace, icing and taking NSAIDs for 3 + months gave her no to mild relief. Allergies No Known Allergies Allergy (Verified 11/17/23 09:10) HPI HPI OV- RT knee pain: Details: 31-year-old female who presents in the office today for a follow-up of right knee pain. I last saw the patient in the office on 09/07/23 when we discussed cortisone injections, right knee aspiration, or arthroscopic surgical interventions; all of which were declined. She was given a genumed knee brace to trial. ? ? While in the office today, the patient confirms right knee edema with no improvement. She claims to have used the knee brace, icing, and NSAIDs for more than three months with no relief. ? 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 Current occupational exposures/hazards: No Cognitive needs: No Hearing needs: No Vision needs: No Female Reproductive History Menstrual Age of Menarche: 13 Review of Systems Const All systems reviewed & are unremarkable except as noted in HPI and below Physical Exam Const General: cooperative, healthy appearing and no acute distress Resp Effort & Inspection: normal respiratory effort and able to speak in complete sentences Cardio Rate: regular rate Peripheral pulses: Peripheral pulses 2+ throughout GI Palpation (GI): Soft to palpation Skin Lesions: no lesions Rashes: no rashes Extrem Other: Right knee: Moderate effusion. Tenderness to palpation along the medial joint line. Full ROM. NVI. Assessment & Plan Assessment & Plan (1) Effusion of right knee: Code(s): M25.461 - Effusion, right knee Category: Medical Plan Ms. Degroot is a 31-year-old female who presents in the office today for a follow-up of right knee pain. I last saw the patient in the office on 09/07/23 when we discussed cortisone injections, right knee aspiration, or arthroscopic surgical interventions; all of which were declined. She was given a genumed knee brace to trial. ? ? While in the office today, the patient confirms right knee edema with no improvement. She claims to have used the knee brace, icing, and NSAIDs for more than three months with no relief.? ? Again, today we discussed the role of cortisone injections, aspirate the right knee, and arthroscopic surgery for medial and lateral meniscectomy partial meniscectomy. The patient again declined all of these options. From an orthopedic perspective there is nothing else to offer the patient at this time. I recommend for her to follow-up with either or all PCP, Rheumatology, or Pain Management. She was provided with my business card and will let me know how she would like to proceed. Otherwise, follow-up will be PRN, or sooner if needed. ? Patient Instructions: Scribed by Charlette Prather medical coding specialist, for Dixie Hoang PA-C on 11/17/2023 at 9:03 am, EST.? Coding Level of Care Code Est Pt Level 3 (42061) Diagnoses Effusion of right knee M25.461
== END 2023-11-17 09:49 | disposition home or self-care (01) ==
PROVIDERS: PCP Nurse Practitioner Family; Visit Provider Physician Assistant
DX: M25.461 Effusion, right knee (principal)
CPT/HCPCS: 99213

== ENCOUNTER → 2023-11-17 09:00 | Outpatient (BNVA) | payer OTHER, SELFPAY | PROVIDERS: PCP Nurse Practitioner Family; Visit Provider Physician Assistant | DX: M25.461 Effusion, right knee (principal) | CPT/HCPCS: 99212 ==

== ENCOUNTER 2024-03-25 14:17 | Outpatient (AMB) | payer OTHER, SELFPAY ==
[2024-03-25 14:36] VITALS: BP 108/71; PULSE 106; O2SAT 100; BMI 24.5
--- NOTE | 2024-03-25 14:36 | MHC.OFFVIS ---
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 They notes were reviewed prior to visit. Recent x-ray and MRI reviewed, results as per below Patient reports 3 years of right knee pain, denies inciting injury, fall, trauma Pain lateral and medial, tenderness to palpation, worse with walking, flexion and extension Pain today is rated as a 5/10, constant Completed physical therapy a couple months ago with no improvement of her symptoms. Minimal improvement with Tylenol and naproxen Has been wearing a knee brace with minimal improvement Declined surgery to the knee. States this was not recommended Underwent steroid injection approximately 1 year ago with no improvement In terms of muscle damage condition is described as aching, throbbing, sharp, burning Pain is negatively impacting patient's enjoyment of life, general activity, walking Denies current use of anticoagulants Denies implantable devices, pacemaker or defibrillator Denies current use of nicotine, tobacco, alcohol or illicit substances FOR[facility]LY [facility] Medical History Autism Social History Housing: House Patient Tobacco Use Status: Never used Tobacco e-Cigarette/Vaping Use: Never Used Second Hand Smoke Exposure: No Current occupational status: employed and disabled 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 Answers questions appropriately. Fully engaged in examination. Skin: warm, dry, intact HEENT: Normocephalic. Hearing intact. Cardiac: External chest normal in appearance. Respiratory: No cough, audible wheezing or stridor. Abdomen: without gross distension. MS: No obvious swelling or deformities. Right knee: Minimal edema. Tenderness to palpation lateral medial joint line. Decreased range motion secondary to pain. Neurological: Oriented to person, place, time and situation. Thought process intact. No gait abnormalities appreciated. Psychiatric: Appropriate mood and affect. Good judgment and insight. Results Reviewed Results Reviewed: 09/19/22 MR/MR knee RT wo con IMPRESSION: 1. Complex tear of the medial meniscal posterior horn and body. 2. Tear of the lateral meniscal body and posterior horn, as above. 3. Mild medial and lateral compartment arthritis. 4. Edema in the lateral aspect lateral femoral condyle. This could represent bone bruise. 5. Proximal tibial edema, differential considerations include bone bruise, sequela of degeneration. 08/11/22 XR/XR knee RT 1V IMPRESSION: Question mild right knee valgus angulation otherwise unremarkable exam. Assessment & Plan Assessment & Plan (1) Tear of meniscus of right knee: Code(s): S83.206A - Unspecified tear of unspecified meniscus, current injury, right knee, initial encounter Category: Medical (2) Right knee pain: Code(s): M25.561 - Pain in right knee Category: Medical Plan Patient presented to the office today, accompanied by her mother, for evaluation and management of her chronic right knee pain MRI reviewed, results as per above Patient has exhausted conservative therapy including PT, home exercise performed, nonsteroidal anti-inflammatory medications, ice, heat, compression, brace Discontinue naproxen, new prescription for diclofenac 50 mg p.o. twice daily. Patient advised on cautions for use. Take with food, do not take with any other nonsteroidal anti-inflammatory medications. Discussed repeat imaging, x-ray versus MRI. They will be seeking evaluation with 2nd orthopedic office in [place], they prefer to have the orthopedic order any further imaging. No improvement with previous cortisone injection they did not wish repeat. All questions and concerns were answered, patient agrees with the plan. Follow up after or though eval, sooner if needed Medications: New diclofenac potassium Take with food, do not take with any other nonsteroidal anti-inflammatory medications. 50 mg PO BID 60 tabs 1RF Coding Level of Care Code New Pt Level 4 (40220) Complex EM visit Add On G2211 Diagnoses Tear of meniscus of right knee S83.206A Right knee pain M25.561
== END 2024-03-25 15:03 | disposition home or self-care (01) ==
PROVIDERS: PCP Nurse Practitioner Family; Referring Provider Physician Assistant; Visit Provider Registered Nurse Emergency
DX: S83.206A Unspecified tear of unspecified meniscus, current injury, right knee, initial encounter (principal); M25.561 Pain in right knee
CPT/HCPCS: 99204; G2211

== ENCOUNTER → 2024-03-25 14:17 | Outpatient (BNVA) | payer OTHER, SELFPAY | PROVIDERS: PCP Nurse Practitioner Family; Referring Provider Physician Assistant; Visit Provider Registered Nurse Emergency | DX: S83.206A Unspecified tear of unspecified meniscus, current injury, right knee, initial encounter (principal); M25.561 Pain in right knee; X58.XXXA Exposure to other specified factors, initial encounter; Y93.9 Activity, unspecified; Y92.9 Unspecified place or not applicable; Y99.9 Unspecified external cause status | CPT/HCPCS: 99202 ==

== ENCOUNTER 2024-04-26 08:57 | Outpatient (AMB) | payer OTHER, SELFPAY ==
[2024-04-26 09:15] VITALS: BP 106/70; PULSE 110; O2SAT 98; BMI 24.1
--- NOTE | 2024-04-26 09:15 | A.OFFPC_ITS ---
Vital Signs 04/26/24 09:15 Height 5 ft 5 in Weight 145 lb BMI 24.1 BP 106/70 Blood Pressure Location Rt brachial Position Sitting Pulse 110 H Pulse Source Pulse Oximeter Pulse Oximetry (%) 98 Oxygen Delivery Method Room Air Intake Visit Reasons: PE Intake Note: pt is here for PE Accompanied by: Self / Same As Patient Allergies No Known Allergies Allergy (Verified 04/26/24 09:48) Medication List - Last Reconciled 04/26/24 by JOSE Jerry diclofenac potassium 50 mg PO BID diphenhydramine-acetaminophen 25-500 mg (Tylenol PM Extra Strength) 2 tabs PO BEDTIME PRN Tobacco use date assessed: 04/26/24 Dental Screening Dental Screen Date: 04/26/24 Did you have a dental visit in the last 12 months?: Yes Did you have a dental problem in the last 6 months where you did not have access to dental care?: No Was dental information given to patient?: Patient has dentist HPI PE HPI Details History of Present Illness The patient is a 29-year-old female presenting with a request for a physical examination. She has a history of a meniscal injury in the right knee, which causes ongoing pain. The timeline of the current knee issue and initial events leading to its onset were not specifically detailed, but it appears the injury has been persistent enough to necessitate follow-up with orthopedics. She currently denies symptoms such as chest pain, shortness of breath, gastrointestinal symptoms, or neurological signs such as numbness. Additionally, there is an indication that she has appropriate gynecological follow-ups, incl uding regular Pap smears. Health Maintenance - Encouraged to obtain laboratory tests in the near future. - Routine Pap smears through [facility] discuss ed. Social History - The patient is accompanied by her [facility] er and has been diagnosed with autism. Review of Systems - Cardiovascular: Denies chest pain. - Respiratory: Denies shortness of breat h. - Gastrointestinal: Denies constipation and diarrhea. - Neurological: Denies numbness. - Psychiatric: Denies suicidal ideation and homicidal ideation. Physical Exam General: Cooperative, healthy appearing, comfortable, no acute distress and well developed Orientation: Patient oriented x3 Limitations: No limitations Head: Normal to inspection Ears: Hearing grossly normal bilaterally Nose: Normal external nose present Face and sinus: Normal facial exam Eyes: Appearance normal, both eyes and all related structures Neck: Normal visual inspection and Yes full ROM Respiratory: Normal respiratory effort and able to speak in complete sentences. Clear to auscultation bilaterally Cardiovascular: Regular rate and rhythm. Normal S1 and S2 GI: Normal to inspection. Soft to palpation and nontender Skin: No rashes or lesions noted Neuro: Patient oriented x3 Extremities: Right knee pain, appears to be a meniscal injury, following up with Ortho. Normal to inspection otherwise Results Plan - Continue follow-up with orthopedics fo r meniscal injury management. - Encourage obtaining routine laboratory tests for ongoing health maintenance. - Reinforce the importance of regular [facility] visits for Pap smear screenings. Patient was informed and verbally consented to the use of an ambient scribe for clinic note documentation during this visit. Discussion Notes During the consultation, I discussed with the patient and her accompanying [facility] member the importance of continuous orthopedic care for her meniscal injury to ensure proper treatment and management. I advised obtaining routine laboratory evaluations as part of her overall health maintenance strategy. It was reiterated that she maintain regular gynecological visits for Pap smear screening. No new management plans or interventions were introduced during this visit. Patient Instructions - Follow up with the orthopedic speciali st as scheduled. - Obtain the suggested laboratory tests when possible. - Continue routine [facility] visits for Pap sm ears. 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 1. Little interest or pleasure in doing things: not at all 2. Feeling down, depressed, or hopeless: not at all 3. Trouble falling or staying asleep, or sleeping too much: not at all 4. Feeling tired or having little energy: not at all 5. Poor appetite or overeating: not at all 6. Feeling bad about yourself - or that you are a failure or have let yourself or your family down: not at all 7. Trouble concentrating on things, such as reading the newspaper or watching television: not at all 8. Moving or speaking so slowly that other people could have noticed. Or the opposite - being so fidgety or restless that you have been moving around a lot more than usual: not at all 9. Thoughts that you would be better off or of hurting yourself in some way: not at all Total score: 0 Depression Screening Interpretation: Negative Depression Screening Done: Yes 46152 - PHQ-9 Billing: Yes Source: Developed by Drs. Rory Sabillon, Zaida Doherty, Edwin Massey and colleagues, with an educational nadiya from [employer]. Thrive Questionnaire Date Thrive assessed: 04/26/24 I am a: Patient What is your living situation today?: I have a steady place to live Within the past 12 months, did the food you bought not last and you didn't have the money to get more?: Never true Within the past 12 months, did you worry whether your food would run out before you got money to buy more?: Never true Do you have trouble paying for medicines?: No Do you have trouble getting transportation to medical appointments?: No Do you have trouble paying your heating and electricity bill?: No Do you have trouble taking care of your child, family member or friend?: No Do you have trouble with day-to-day activities such as bathing, preparing meals, shopping, managing finances, etc.?: No Are you currently unemployed and looking for a job?: Yes Are you interested in more education?: No Please select the resources that you would like help with: None Currently or been in a relationship where the following occur: No concerns reported THRIVE Score: 0 AUDIT C Alcohol Use Questionnaire (AUDIT-C) 1. How often do you have a drink containing alcohol?: Never 3. How often do you have six or more drinks on one occasion?: Never Total Score: 0 Score Reviewed/Action Taken: Yes DAVY-7 AMB Questionnaire DAVY-7 Date DAVY - 7 assessed: 04/26/24 Feeling nervous, anxious, or on edge: 0 = Not at all Not being able to stop or control worryin = Not at all Worrying too much about different things: 0 = Not at all Trouble relaxin = Not at all Being so restless that it is hard to sit still: 0 = Not at all Becoming easily annoyed or irritable: 0 = Not at all Feeling afraid as if something awful might happen: 0 = Not at all Total DAVY-7 score (0-4 normal; 5-9 mild; 10-14 moderate; 15-21 severe): 0 Source: Developed by Drs. Rory Sabillon, Zaida Doherty, Edwin Massey and colleagues, with an educational nadiya from [employer]. DAVY-7 Assessment Billing DAVY-7 Assessment Tool: DAVY-7 Assessment 19866 Physical exam (Primary Care) Vital Signs: Last Vital Signs Pulse 110 H 04/26/24 09:15 BP 106/70 04/26/24 09:15 Pulse Ox 98 04/26/24 09:15 Oxygen Delivery Method Room Air 04/26/24 09:15 BMI result Body Mass Index 24.1 Tobacco/Smoking Status: Tobacco use Status Tobacco use date assessed 04/26/24 04/26/24 09:20 Patient Tobacco Use Status Never used Tobacco 04/26/24 09:20 e-Cigarette/Vaping Use Never Used 04/26/24 09:20 PHQ-9: PHQ-9 Score PHQ-9: Total score 0 04/26/24 09:20 Depression Screening Interpretation: Negative Thrive Assessment: Date of Thrive Assessment Date Thrive assessed 04/26/24 04/26/24 09:20 Currently or been in a relationship where the following occur: No concerns reported Coding Level of Care Code Est Pt Prev Care 18-39y(80841) Diagnoses Physical exam Z00.00 Additional Codes DAVY-7 Assessment Billing - DAVY-7 Assessment Tool: DAVY-7 Assessment 07036 ([id number]) PHQ-9 - 87763 - PHQ-9 Billing: Yes ([id number]) Assessment & Plan Assessment & Plan (1) Physical exam: Code(s): Z00.00 - Encounter for general adult medical examination without abnormal findings Category: Medical Plan . Orders: Orders Comprehensive [place]. Panel Fast Today Z00.00 - Encounter for general adult medical examination without abnormal findings Complete Blood Count Auto Diff Today Z00.00 - Encounter for general adult medical examination without abnormal findings TSH reflex Free T4 Today Z00.00 - Encounter for general adult medical examination without abnormal findings UA CC w/rflx Micro + Cult Today Z00.00 - Encounter for general adult medical examination without abnormal findings Lipid Panel Today Z00.00 - Encounter for general adult medical examination without abnormal findings
== END 2024-04-26 09:58 | disposition home or self-care (01) ==
PROVIDERS: PCP Nurse Practitioner Family; Visit Provider Nurse Practitioner Family
DX: Z00.00 Encounter for general adult medical examination without abnormal findings (principal)

== ENCOUNTER → 2024-04-26 08:57 | Outpatient (BNVA) | payer OTHER, SELFPAY | PROVIDERS: PCP Nurse Practitioner Family; Visit Provider Nurse Practitioner Family | DX: Z00.00 Encounter for general adult medical examination without abnormal findings (principal); F84.0 Autistic disorder | CPT/HCPCS: 96127; 99395 ==

== ENCOUNTER 2024-07-07 10:00 | Outpatient (RCR) | payer OTHER, SELFPAY | END 2024-10-14 09:30 | disposition home or self-care (01) | LOC: HO.PTCHIC 10:00 | PROVIDERS: PCP Nurse Practitioner Family; Visit Provider Orthopaedic Surgery | DX: S83.241D Other tear of medial meniscus, current injury, right knee, subsequent encounter (principal); X58.XXXD Exposure to other specified factors, subsequent encounter | CPT/HCPCS: 97110; 97161 ==